=== PATIENT | female | born 1965 | race Caucasian/White ===

== ENCOUNTER 2024-02-22 15:03 | Observation (INO) | payer OTHER, SELFPAY ==
--- NOTE | 2024-02-22 | ECG_ITS ---
Test Reason : chest pain Blood Pressure : / mmHG Vent. Rate : 134 BPM Atrial Rate : 000 BPM P-R Int : 000 ms QRS Dur : 086 ms QT Int : 346 ms P-R-T Axes : 000 -37 -48 degrees QTc Int : 516 ms Atrial fibrillation with rapid ventricular response ; initial part of EKG is sinus. Left axis deviation Minimal voltage criteria for LVH, may be normal variant ( R in aVL ) Inferior infarct , age undetermined -could be related to body habitus and lead placement Possible Anterior infarct , age undetermined - could be related to body habitus and lead placement Abnormal ECG No previous ECGs available Referred By: Generic ED Physician Electronically Signed By:NIURKA CARDENAS
--- NOTE | ~2024-02-22 | US_ITS ---
EXAMINATION: US TRIPLEX LOWER EXTREMITY, RIGHT CLINICAL INFORMATION: Pain, swelling COMPARISON: None available. TECHNIQUE: Color-flow triplex imaging with spectral analysis and compression Doppler were performed on the right lower extremity. FINDINGS: Respiratory variation, normal compression and augmented flow are noted throughout the right lower extremity. The visualized common femoral vein, superficial femoral vein, profunda femoral vein, popliteal vein and midcalf peroneal and posterior tibial venous segments show no evidence of deep venous thrombosis. There is no Art's cyst. US/US venous duplex LE RT IMPRESSION: No evidence of deep venous thrombosis involving the right lower extremity. Electronically signed by: Lamar Damon MD 02/22/2024 06:13 PM EDT RP
--- NOTE | ~2024-02-22 | XR_ITS ---
EXAMINATION: XR CHEST CLINICAL INFORMATION: Rapid atrial fibrillation COMPARISON: None available. TECHNIQUE: Frontal view of the chest was obtained. FINDINGS: No significant abnormality is noted involving the heart, lungs, mediastinum, bony thorax or soft tissues. XR/XR chest 1V IMPRESSION: No acute processes. Electronically signed by: Chevy Mcdonough MD 02/22/2024 09:00 PM EDT RP
--- NOTE | 2024-02-22 15:26 | ED.GENADULT ---
HPI - General Adult General Chief complaint: Arrhythmia/Palpitations Stated complaint: Chest pain Time Seen by Provider: 02/22/24 16:00 Source: patient, RN notes reviewed and old records reviewed Mode of arrival: ambulatory Limitations: no limitations History of Present Illness ED Provider: Jacey ESCOBEDO narrative: 58-year-old female with past medical history significant for hyperlipidemia, status post left hip replacement presents for evaluation of palpitations. Patient reports that she has felt unwell for the last 5 days She reports feeling lightheaded, dizzy when standing pain She endorses associated nausea and shortness of breath She reports that her fit bit today told her heart rate was over 130 The patient had EKG in triage which showed atrial fibrillation at 134 beats minute. The patient denies any known history of atrial fibrillation She denies any chest pain, recent fevers, chills, cough pain Denies any recent travel She states that she takes hydrochlorothiazide for intermittent right lower leg swelling This is been unchanged for about 12 years Related Data Home Medications ?Medication ?Instructions ?Recorded ?Confirmed hydrochlorothiazide 25 mg tablet 25 mg PO DAILY 02/22/24 02/22/24 rosuvastatin 10 mg tablet 10 mg PO DAILY 02/22/24 02/22/24 Allergies Allergy/AdvReac Type Severity Reaction Status Date / Time Penicillins [PCN] Allergy Rash Verified 02/22/24 15:29 Review of Systems Constitutional: Constitutional: Denies body ache(s), Denies chills and Denies fever(s) Cardiovascular: Cardiovascular: Denies chest pain, Reports rapid heart rate, Reports palpitations and Reports dyspnea Respiratory: Respiratory: Denies cough and Reports dyspnea Gastrointestinal: Gastrointestinal: Denies abdominal pain, Denies nausea and Denies vomiting Musculoskeletal: Musculoskeletal: Denies back pain Integumentary/Breasts: Skin/Breast: Denies rash Psychiatric: Psychiatric: Reports anxiety Endocrine: Endocrine: Reports palpitations PMFSH Social History Social History Smoked in Last 30 Days: No Advance Directives: No Advance Directives Information Provided: No Do you have a plan to hurt others: No Plan Patient : No Physical Exam ED Vital Signs: Vital Signs - 24 hr 02/22/24 15:27 02/22/24 16:43 02/22/24 17:44 Temperature 97.9 F Pulse Rate 89 86 91 Respiratory Rate 20 16 Blood Pressure 156/84 H 126/77 123/70 Pulse Oximetry 98 99 Oxygen Delivery Method Room Air Room Air BMI result Body Mass Index 26.6 Const General: healthy appearing, comfortable, no acute distress, alert and awake Nutritional Appearance: well nourished Orientation/consciousness: patient oriented x3 HENMT Head: Yes normocephalic and Yes atraumatic Eyes Eyelids: Yes eyelids normal Conjunctivae: conjunctivae normal Sclerae: sclerae normal Corneas: corneas normal Pupils: Equal, round and reactive pupils present EOM: EOMs intact bilaterally Neck Neck: Yes full ROM Resp Effort & Inspection: normal respiratory effort, able to speak in complete sentences, no audible wheezes and not labored Auscultation: clear to auscultation bilaterally Cardio Rate: abnormal rate and tachycardic Rhythm: abnormal rhythm irregularly irregular GI Inspection: No distended Palpation (GI): Soft to palpation, not firm, nontender, no guarding and not rigid Skin General skin exam: elasticity normal Neuro General: patient oriented x3 Cranial nerves: Yes Equal, round and reactive pupils present and Yes Bilaterally intact EOM present Cognition (Neuro): normal cognition Extrem Other: Moving all extremities well without any obvious deformities Course Course Course Narrative: This is an RME: Additional HPI, ROS, PE not included below will be deferred to primary provider. RME assessment and note performed by: Kary Cortez PA-C This is a [id number]-female who presents to the ER with a complaint of palpitations x 5 days. Reports that over the last 5 days it has been worsening. Endorsing lightheaded and dizzy. She is currently on crestor 20mg QD and HCTZ 50mg three times per week. Recently stopped taking aswaganda today, has been on it for 2 months or so. No hx of a fib. Medications Administered Discontinued Medications Generic Name Dose Route Start Last Admin Trade Name Freq PRN Reason Stop Dose Admin Aspirin 162 mg 02/22/24 19:59 02/22/24 20:45 Aspirin Enteric Coated 81 Mg Tablet.Dr PO 02/22/24 20:00 162 mg ONCE STA Administration Diltiazem HCl 120 mg 02/22/24 16:19 02/22/24 16:43 Diltiazem Hcl Cd 120 Mg Cap.Er.Deg PO 02/22/24 16:20 120 mg ONCE ONE Administration Protocol Medical Decision Making Medical Decision Making MDM Narrative: 58-year-old female presents for evaluation of palpitations, she was found to be in AFib at 1:34 a.m. and EKG. Blood time I evaluated her in the room her heart rate was in the 80s to 90s. I did order a dose of Cardizem to keep her rate controlled. Blood pressure is stable. Plan for labs, ultrasound of the right lower extremity given the intermittent right leg swelling. Given that this is new onset AFib, the patient will likely require admission for further evaluation and management. She has no chest pain, her EKG is nonischemic. The patient does report a history of hypokalemia likely due to hydrochlorothiazide use this will be assessed on basic labs and repleted if necessary. Differential Diagnosis Differential Diagnoses: The differential diagnosis associated with the presentation includes Atrial fibrillation Atrial flutter DVT PE Cardiomyopathy Cardiac arrhythmia Admission/Observation Consideration of admission/observation: Escalation of care including admission/observation considered The patient will likely require admission for new onset AFib Lab Data [facility] Lab Attestation statement: I reviewed the patient's lab results. No leukocytosis or anemia. Normal platelet count. No electrolyte abnormalities. 02/22/24 15:57 02/22/24 15:57 Labs: Lab Results 02/22/24 Range/Units 15:57 WBC 6.5 (4.8-10.8) X10*3/uL RBC 4.93 (4.20-5.50) X10*6/uL Hgb 14.1 (12.0-16.0) g/dl Hct 42.0 (37.0-47.0) % MCV 85.2 (80.0-98.0) fL MCH 28.6 (27.0-33.0) pg MCHC 33.6 (31.0-35.0) g/dl RDW 13.2 (11.0-16.0) % Plt Count 202 (160-400) X10*3/uL MPV 12.6 H (9.4-12.3) fL Immature Gran % (Auto) 0.3 (0.0-0.4) % Neut % (Auto) 62.3 (45-73) % Lymph % (Auto) 28.7 (20-40) % [place] % (Auto) 5.6 (2-11) % Eos % (Auto) 2.5 (0-4) % Baso % (Auto) 0.6 (0-2) % Lymph # (Auto) 1.9 (1.2-4.9) X10*3/uL [place] # (Auto) 0.4 (0.1-1.2) X10*3/uL Eos # (Auto) 0.2 (0.0-0.4) X10*3/uL Baso # (Auto) 0.0 (0.0-0.2) X10*3/uL Abs Immat Gran (auto) 0.02 (0.00-0.03) X10*3/uL Absolute Neuts (auto) 4.0 (2.0-8.3) x10*3/uL Absolute Nucleated RBC 0.000 (0.0-0.012) X10*3/uL Nucleated RBC % (auto) 0.0 (0.0-0.2) /100WBC PT 11.3 (10.9-12.4) SEC INR 1.0 (0.9-1.1) APTT 35.6 (26.0-36.8) SEC Sodium 142 (135-145) mmol/L Potassium 3.5 (3.3-5.1) mmol/L Chloride 104 (96-108) mmol/L Carbon Dioxide 28 (22-29) mmol/L Anion Gap 14 (12-20) BUN 8 L (9-16) mg/dL Creatinine 0.69 (0.5-1.4) mg/dL Estim Creat Clear Calc 93.0 Estimated GFR > 60 Random Glucose 88 (60-115) mg/dL Calcium 10.4 H (8.4-10.2) mg/dL Magnesium 2.4 (1.6-2.6) mg/dL Total Bilirubin 1.5 H (0.0-1.0) mg/dL Direct Bilirubin 0.3 (0.0-0.5) mg/dL AST 17 (5-31) U/L ALT 19 (0-31) U/L Alkaline Phosphatase 76 (39-117) U/L Troponin I High Sens < 2.7 (<3.5-17.0) ng/L B-Natriuretic Peptide < 10 (<100) pg/mL Total Protein 8.1 H (6.5-8.0) g/dL Albumin 4.9 (3.5-5.0) g/dL TSH 1.91 (0.32-4.0) uIU/mL Influenza Type A (PCR) NEGATIVE (Negative) Influenza Type B (PCR) NEGATIVE (Negative) RSV RNA Qual (PCR) NEGATIVE (Negative) SARS-CoV-2 RNA (RT-PCR) NEGATIVE (Negative) Independent Interpretation I performed an independent interpretation of an: EKG (AFib with rapid ventricular response, rate of [address] segment elevation [place]. Troponin negative) Discharge Plan Discharge Clinical Impression: Palpitations, Atrial fibrillation Patient Disposition: Admitted As Inpatient Interventions: Admission Worksheet (ED) Last Done: 02/22/24 20:35
[2024-02-22 15:27] VITALS: BP 156/84; PULSE 89; RESP 20; TEMP 36.6; O2SAT 98; BMI 26.6
[2024-02-22 16:03] LABS: MANUAL DIFF FLAG NO
[2024-02-22 16:06] LABS: Basophils Percent Auto 0.6 % (0-2); Eosinophils Absolute Auto 0.2 X10*3/uL (0.0-0.4); Eosinophils Percent Auto 2.5 % (0-4); Hemoglobin 14.1 g/dl (12.0-16.0); Imm Gran Abs Auto 0.02 X10*3/uL (0.00-0.03); Imm Gran Pct Auto 0.3 % (0.0-0.4); Lymphocytes Absolute Auto 1.9 X10*3/uL (1.2-4.9); Lymphocytes Percent Auto 28.7 % (20-40); Mean Corpuscular HGB Conc 33.6 g/dl (31.0-35.0); Mean Corpuscular Hemoglobin 28.6 pg (27.0-33.0); Mean Corpuscular Volume 85.2 fL (80.0-98.0); Mean Platelet Volume 12.6 fL (9.4-12.3); Monocytes Absolute Auto 0.4 X10*3/uL (0.1-1.2); Monocytes Percent Auto 5.6 % (2-11); Neutrophils Percent Auto 62.3 % (45-73); Platelet Count 202 X10*3/uL (160-400); Red Blood Count 4.93 X10*6/uL (4.20-5.50); Red Cell Distribution Width 13.2 % (11.0-16.0); White Blood Count 6.5 X10*3/uL (4.8-10.8)
[2024-02-22 16:11] LABS: Prothrombin Time 11.3 SEC (10.9-12.4)
[2024-02-22 16:13] LABS: Partial Thromboplastin Time 35.6 SEC (26.0-36.8)
[2024-02-22 16:19] VITALS: PULSE 85
[2024-02-22 16:24] LABS: Alanine Aminotransferase 19 U/L (0-31); Albumin Level 4.9 g/dL (3.5-5.0); Alkaline Phosphatase 76 U/L (39-117); Anion Gap 14 (12-20); Aspartate Amino Transferase 17 U/L (5-31); Bilirubin Direct 0.3 mg/dL (0.0-0.5); Bilirubin Total 1.5 mg/dL (0.0-1.0); Blood Urea Nitrogen 8 mg/dL (9-16); Calcium 10.4 mg/dL (8.4-10.2); Carbon Dioxide 28 mmol/L (22-29); Chloride 104 mmol/L (96-108); Estimated Glomerular Filt Rate > 60; Glucose Random 88 mg/dL (60-115); Magnesium 2.4 mg/dL (1.6-2.6); Potassium 3.5 mmol/L (3.3-5.1); Sodium 142 mmol/L (135-145); Total Protein 8.1 g/dL (6.5-8.0)
[2024-02-22 16:27] LABS: Troponin-I High Sensitivity < 2.7 ng/L (<3.5-17.0)
[2024-02-22 16:40] LABS: Influenza A PCR NEGATIVE (Negative); Influenza B PCR NEGATIVE (Negative); Resp Syncy Virus RNA Qual PCR NEGATIVE (Negative); SARS COV2 PCR INHOUSE NEGATIVE (Negative); TSH reflex Free T4 1.91 uIU/mL (0.32-4.0)
[2024-02-22 16:41] LABS: B Type Natriuretic Peptide < 10 pg/mL (<100)
[2024-02-22 16:43] VITALS: BP 126/77; PULSE 86
[2024-02-22] MEDS: dilTIAZem HCL CD 120 MG CAP.ER.DEG PO (16:43)
--- NOTE | 2024-02-22 16:57 | PC.NURSE ---
pt medicated per JUL- pt resting on exam room stretcher, changed into hospital attire, patient monitor applied, call chen within reach
[2024-02-22 17:44] VITALS: BP 123/70; PULSE 91; RESP 16; O2SAT 99
--- NOTE | 2024-02-22 17:50 | PC.NURSE ---
Pt reports heart palpitations x 5 days with associated lightheadedness. states today sx worse, found to be in A fib, no history with a rate in 80s. Also reports right ankle swelling, bedside ultrasound being done at this time
[2024-02-22 20:00] VITALS: BP 128/77; PULSE 102; RESP 22; TEMP 36.7; O2SAT 97
--- NOTE | 2024-02-22 20:04 | P.HPHOSP_ITS ---
History of Present Illness Date of Service: 02/22/24 Attending physician on admission: Yue Banks Chief Complaint: Palpitations Arlene Hale is a very pleasant 58 years old woman with past medical history significant for hyperlipidemia presents to the emergency department complaining of 5 days' history of palpitations associated with dizziness and shortness on breath. She denied chest pain or loss of consciousness. She did not report fever or chills. She does not have history of hyperthyroidism, essential hypertension, atrial fibrillation or CHF. Did not report any acute gastrointestinal or genitourinary symptoms. She does take hydrochlorothiazide every other day for ankle edema. Denied alcohol abuse, tobacco smoking or illicit drug use. She commented that about 5 years ago while she was having a colonoscopy she was experiencing PVCs for which she was evaluated. She was taking ashwanga for brain fog . In the ED, she was found to have atrial fibrillation with rapid ventricular response, which resolved after Cardizem p.o. was given. Other vital signs are normal. Blood workup including CBC, CMP, BNP, TSH and troponin are unremarkable. ECG is consistent with atrial fibrillation with rapid ventricular response. ED tx: Diltiazem 120 mg p.o. once Review of Systems 2 Review of Systems: All 12 systems were reviewed and normal except as noted in HPI. [facility] Medical History (Updated 02/22/24 @ 21:04 by Yue Banks MD) Hyperlipidemia Social History Smoked in Last 30 Days: No Advance Directives: No Advance Directives Information Provided: No Do you have a plan to hurt others: No Plan Patient : No Meds Allergies Allergy/AdvReac Type Severity Reaction Status Date / Time Penicillins [PCN] Allergy Rash Verified 02/22/24 15:29 Active Medications: Current Medications Acetaminophen (Acetaminophen 325 Mg Tablet) 650 mg PO Q6H PRN PRN Reason: Pain, Mild (Pain Scale 1-3), fever or headache Melatonin (Melatonin 3 Mg Tablet) 6 mg PO BEDTIME PRN PRN Reason: Insomnia Sodium Chloride (0.9 % Sodium Chloride Flush 3 Ml Syringe) [facility] Medications ?Medication ?Instructions ?Recorded ?Confirmed ?Last Taken ?Type hydrochlorothiazide 25 mg tablet 25 mg PO DAILY 02/22/24 02/22/24 Unknown History rosuvastatin 10 mg tablet 10 mg PO DAILY 02/22/24 02/22/24 Unknown History Physical Exam 2 Vital Signs and Narrative: Vital Signs: Last Vital Signs Temp 97.9 F 02/22/24 15:27 Pulse 91 02/22/24 17:44 Resp 16 02/22/24 17:44 BP 123/70 02/22/24 17:44 Pulse Ox 99 02/22/24 17:44 O2 Del Method Room Air 02/22/24 17:44 BMI result Body Mass Index 26.6 Constitutional - Awake and Alert, No apparent distress HEENT - Pupils equally round. Heart - Irregular rhythm, normal rate. No murmus. Lungs - Normal lung expansion, Normal respiratory effort, No respiratory distress, CTA bilaterally Abdomen - Nontender. Extremities - no calf tenderness bilaterally, no swelling Musculoskeletal - Normal inspection, normal ROM Skin - Warm/Dry Neurological - Alert & oriented x3. No focal weakness grossly noted. Psychological - Appropriate affect Results Labs 02/22/24 15:57 02/22/24 15:57 Labs: Laboratory Results - last 24 hr 02/22/24 15:57 MCV 85.2 MCH 28.6 MCHC 33.6 RDW 13.2 Plt Count 202 MPV 12.6 H Immature Gran % (Auto) 0.3 Neut % (Auto) 62.3 Lymph % (Auto) 28.7 [place] % (Auto) 5.6 Eos % (Auto) 2.5 Baso % (Auto) 0.6 Lymph # (Auto) 1.9 [place] # (Auto) 0.4 Eos # (Auto) 0.2 Baso # (Auto) 0.0 Abs Immat Gran (auto) 0.02 Absolute Neuts (auto) 4.0 Absolute Nucleated RBC 0.000 Nucleated RBC % (auto) 0.0 PT 11.3 INR 1.0 APTT 35.6 Anion Gap 14 Estim Creat Clear Calc 93.0 Estimated GFR > 60 Random Glucose 88 Calcium 10.4 H Magnesium 2.4 Total Bilirubin 1.5 H Direct Bilirubin 0.3 AST 17 ALT 19 Alkaline Phosphatase 76 Troponin I High Sens < 2.7 B-Natriuretic Peptide < 10 Total Protein 8.1 H Albumin 4.9 TSH 1.91 Influenza Type A (PCR) NEGATIVE Influenza Type B (PCR) NEGATIVE RSV RNA Qual (PCR) NEGATIVE SARS-CoV-2 RNA (RT-PCR) NEGATIVE Imaging Radiologist's Impressions: Impressions Venous Duplex 02/22/24 17:30 IMPRESSION: No evidence of deep venous thrombosis involving the right lower extremity. Electronically signed by: Lamar Damon MD 02/22/2024 06:13 PM EDT Assessment and Plan (1) Atrial fibrillation: Qualifiers: Atrial fibrillation type: unspecified Qualified Code(s): I48.91 - Unspecified atrial fibrillation Status: Acute (2) Hyperlipidemia: Qualifiers: Hyperlipidemia type: unspecified Qualified Code(s): E78.5 - Hyperlipidemia, unspecified Status: Acute Plan Arlene Hale is a 58 years old woman presents with: * Atrial fibrillation with rapid ventricular response, now rate controlled. Troponin neg. Normal TSH. Observation under hospitalist service. Telemetry. Continue Cardizem CD 120 mg p.o. daily (this seems to be working for her). Start treatment with aspirin daily. Check echo. Obtain cardiology consult. * Hyperlipidemia. Continue statin. * Hx of lower extremities edema, currently no edema. Hold HCTZ for now. Code status: Full DVT prophylaxis: Early ambulation. Quality Stroke Does the patient have a stroke diagnosis?: No VTE Prior VTE?: No VTE Risk Level:: Medical - low VTE Device Contraindication: Treatment Not Indicated VTE Drug Contraindication: Treatment Not Indicated
--- NOTE | 2024-02-22 20:18 | MHC.EDTECH ---
This tech assumed care of patient at 1900,rounded and introduced self to patient,patient ambulated to the bathroom with a steady gait,vitals taken,belongings list completed,copy placed in chart,call chen in reach
[2024-02-22] MEDS: Aspirin Enteric Coated 81 MG TABLET.DR 162 MG PO (20:45)
[2024-02-22 22:01] VITALS: BMI 30.1
[2024-02-22] MEDS: 0.9 % Sodium Chloride Flush 3 ML SYRINGE IVFLUSH (22:01)
[2024-02-22 22:08] VITALS: BP 126/79; PULSE 82; RESP 17; TEMP 36.3; O2SAT 97
[2024-02-23 03:31] VITALS: BP 108/56; PULSE 74; RESP 20; TEMP 36.2; O2SAT 98
[2024-02-23 06:58] LABS: MANUAL DIFF FLAG NO
--- NOTE | 2024-02-23 07:00 | CA_ITS ---
Transthoracic Echocardiogram Patient (Last, First, Middle): Arlene Hale, Gender: Female Date of : 1965 Age: 58 Procedure Date: 02/23/2024 Procedure Type: Transthoracic Echocardiogram Location: [facility] [place] Height: 167. cm Weight: 84.82 kg BSA: 1.94 m2 Heart Rate: bpm BP: 105 / 70 mmHg Test Bore Helper: Referring MD: Yue Banks MD Symptoms: Rapid AFib Study Quality: Fair/Contrast ECG Rhythm: Sinus Conclusions: - LVEF difficult to assess in spite of contrast use; possibly 50 55%. - No obvious valvular pathology seen on this study. Findings Procedure Information Contrast agent, definity, is being given per protocol without apparent complications. Left Ventricle Normal left ventricular cavity size. There is normal left ventricular wall thickness. There is no evidence of regional wall motion abnormalities. Diastolic function is normal for age. LVEF difficult to assess in spite of contrast use; possibly 50-55%. Right Ventricle Normal right ventricular cavity size and systolic function. Atria Both atria are normal in size. Aortic Valve The aortic valve was not well visualized. There is no aortic valve stenosis. There is no aortic valve regurgitation. Mitral Valve The mitral valve appears normal. There is no mitral valve regurgitation. There is no mitral valve stenosis. Pulmonic Valve The pulmonic valve is likely normal. Tricuspid Valve There is trace tricuspid valve regurgitation. There is no evidence of pulmonary hypertension. Great Vessels The asc aorta is normal in size. Venous The inferior vena cava is normal in size and collapses greater than 50% with inspiration. Pericardium/Pleural There is no evidence of pericardial effusion. Prior Study Comparison No prior study available for comparison. Recommendations, Care & Conclusions No obvious valvular pathology seen on this study. Measurements 2D Linear Measurements IVSd: 0.97 0.6-0.9/0.6-1.0 cm LVIDd: 4.07 3.9-5.3/4.2-5.9 cm LVIDd Index: 2.10 2.4-3.2/2.2-3.1 cm/m2 LVIDs: 2.65 2.0-3.6 cm LVPWd: 0.91 0.7-1.1 cm Ao Root: 3.30 2.1-3.5 cm LA Diam: 2.80 2.7-3.8/3.0-4.0 cm LAIDs Index: 1.44 1.5-2.3 cm/m2 LV Mass: 148.73 67-162/88-224 g LV Mass Index: 76.67 43-95/49-115 g/m2 LVOT Diam: 1.90 3.0+(-)1.3 cm Mitral Valve MV Pk E: 0.54 MV PK A: 0.72 MV Decel Time: 259.00 E/A: 0.80 E'Lateral: 12.30 E'Medial: 8.49 E/E' Med: 6.40 E/E' Lat: 4.40 PHT: 76.00 MVA PHT: 2.89 Decel Eddy: 2.10 Aortic Valve AoV Pk Rico: 1.00 AoV Mn Rico: 0.61 AoV VTI: 0.20 AoV Pk Grad: 4.00 Aov Mn Grad: 2.00 CRISTY Cont.VTI: 2.00 LVOT LVOT Pk Rico: 0.67 LVOT Mn Rico: 0.46 LVOT VTI: 0.14 LVOT Pk Grad: 2.00 LVOT Mn Grad: 1.00 LVOT Diam: 1.90 LVOT Area: 2.84 Diastolic Function MV Pk E: 0.54 MV Pk A: 0.72 E/A: 0.80 E'Medial: 8.49 E/E' Med: 6.40 E' Laterial: 12.30 E/E' Lat: 4.40 Right Ventricle TAPSE (mm): 20.30 TVS' Rico: 10.20 Tricuspid Valve TR Pk Rico: 1.96 TR Pk Grad: 15.00 Great Vessels Aorta Ao Root-2D: 3.30 2.0-3.7 cm Ao Asc: 2.80 2.1-3.4 cm Pulmonary Valve PV Pk Rico: 0.86 Peak PV Grad: 3.00 Updated in Other Vendor System with Status of Final Ernie Turner MD electronically signed on 02/23/2024 12:17:50 PM with status of Final
[2024-02-23 07:01] LABS: Basophils Percent Auto 0.7 % (0-2); Eosinophils Absolute Auto 0.2 X10*3/uL (0.0-0.4); Hematocrit 37.7 % (37.0-47.0); Hemoglobin 12.5 g/dl (12.0-16.0); Imm Gran Abs Auto 0.02 X10*3/uL (0.00-0.03); Imm Gran Pct Auto 0.4 % (0.0-0.4); Lymphocytes Absolute Auto 1.9 X10*3/uL (1.2-4.9); Lymphocytes Percent Auto 33.8 % (20-40); Mean Corpuscular HGB Conc 33.2 g/dl (31.0-35.0); Mean Corpuscular Hemoglobin 28.3 pg (27.0-33.0); Mean Corpuscular Volume 85.3 fL (80.0-98.0); Mean Platelet Volume 12.8 fL (9.4-12.3); Monocytes Absolute Auto 0.3 X10*3/uL (0.1-1.2); Monocytes Percent Auto 5.9 % (2-11); Neutrophils Absolute Auto 3.1 x10*3/uL (2.0-8.3); Neutrophils Percent Auto 56.2 % (45-73); Platelet Count 177 X10*3/uL (160-400); Red Blood Count 4.42 X10*6/uL (4.20-5.50); Red Cell Distribution Width 13.2 % (11.0-16.0); White Blood Count 5.6 X10*3/uL (4.8-10.8)
[2024-02-23 07:02] VITALS: BP 105/70; PULSE 77; RESP 18; TEMP 36.2; O2SAT 96
[2024-02-23 07:27] LABS: Anion Gap 12 (12-20); Blood Urea Nitrogen 9 mg/dL (9-16); Calcium 9.3 mg/dL (8.4-10.2); Carbon Dioxide 27 mmol/L (22-29); Chloride 107 mmol/L (96-108); Creatinine Clr Calc Pharmacy 101.6; Estimated Glomerular Filt Rate > 60; Glucose Random 88 mg/dL (60-115); Magnesium 2.3 mg/dL (1.6-2.6); Potassium 3.3 mmol/L (3.3-5.1); Sodium 143 mmol/L (135-145)
[2024-02-23 07:29] LABS: Troponin-I High Sensitivity < 2.7 ng/L (<3.5-17.0)
--- NOTE | 2024-02-23 08:16 | PHA.MEDREC ---
Pharmacy Consult ? Medication Reconciliation Pharmacy has completed the medication reconciliation. Spoke to pt at bedside, she stated she takes HCTZ 50mg three times weekly and Rosuvastatin 20mg Daily. Does not match fill history, will communicate this with provider.
[2024-02-23] MEDS: dilTIAZem HCL CD 120 MG CAP.ER.DEG PO (08:19)
[2024-02-23] MEDS: Aspirin 81 MG TAB.CHEW PO (08:19)
[2024-02-23] MEDS: 0.9 % Sodium Chloride Flush 3 ML SYRINGE IVFLUSH (08:20)
--- NOTE | 2024-02-23 08:53 | MHC.CM.PN ---
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 Her son will pick her up at [place]. HCP form completed here and added to chart. DCP: home, self care. CM to follow for DC needs.
--- NOTE | 2024-02-23 10:39 | P.CONCA_ITS ---
History of Present Illness History of Present Illness Date of Service: 02/23/24 Chief complaint: Rapid A-fib Narrative: This is a cardiology consultation regarding atrial fibrillation. Patient denies any prior cardiac history including coronary disease or myocardial infarction or cardiomyopathy or in fact any other cardiac issues. She states that she generally feels fine. For the last few days, she has been noticing palpitations with some dizziness and shortness of breath and that led to further evaluation. She was found to be in atrial fibrillation with rapid response and got Cardizem. After that, it seems that she has back to normal sinus rhythm. Currently, she states she is feeling better. Otherwise, there is history of possible arrhythmia, PVCs versus something else few years back but not very clear. Otherwise, she is fairly active with no limitations. Review of Systems 2 Review of Systems: Yes all other systems are reviewed and are negative Constitutional: Constitutional: Reports as per HPI and Reports no additional constitutional complaints Eyes: Eyes: Reports as per HPI and Denies no additional eye complaints ENT: Denies system reviewed and no additional complaints, except as documented and Reports as per HPI Cardiovascular: Cardiovascular: Reports as per HPI, Reports no additional cardiovascular complaints, Denies acrocyanosis, Denies cool extremities, Denies chest pain, Denies leg edema, Denies lightheadedness, Denies palpitations and Denies dyspnea Respiratory: Respiratory: Reports as per HPI, Denies no additional respiratory complaints and Denies dyspnea Gastrointestinal: Gastrointestinal: Reports as per HPI and Denies no additional gastrointestinal complaints Genitourinary: Genitourinary: Reports as per HPI Musculoskeletal: Musculoskeletal: Reports no additional musculoskeletal complaints and Reports as per HPI Integumentary/Breasts: Skin/Breast: Reports system reviewed and no additional complaints, except as docu Neurologic: Reports system reviewed and no additional complaints, except as documented and Reports as per HPI Psychiatric: Psychiatric: Reports no additional psychiatric complaints and Reports as per HPI Endocrine: Endocrine: Reports no additional endocrine complaints, Reports as per HPI and Denies palpitations Hematologic/Lymphatic: Hematologic/Lymphatic: Reports no additional hematologic/lymphatic complaints and Reports as per HPI Allergic/Immunologic: Allergic/Immunologic: Reports no additional allergic/immunologic complaints and Reports as per HPI PMFSH Past Medical History Medical History (Updated 02/23/24 @ 10:43 by Ernie Turner MD) Hyperlipidemia Family History Family History (Updated 02/23/24 @ 10:42 by Ernie Turner MD) Father Atrial fibrillation Social History Social History Household Members: Children Housing: House Do you presently have visiting nurse or other home services: No Patient Tobacco Use Status: Former Tobacco user service: No Meds Allergies Allergy/AdvReac Type Severity Reaction Status Date / Time Penicillins [PCN] Allergy Rash Verified 02/22/24 15:29 Active Medications: Current Medications Acetaminophen (Acetaminophen 325 Mg Tablet) 650 mg PO Q6H PRN PRN Reason: Pain, Mild (Pain Scale 1-3), fever or headache Aspirin (Aspirin 81 Mg Tab.Chew) 81 mg PO DAILY [facility] Last Admin: 02/23/24 08:19 Dose: 81 mg Diltiazem HCl (Diltiazem Hcl Cd 120 Mg Cap.Er.Deg) 120 mg PO DAILY [facility]; Protocol Last Admin: 02/23/24 08:19 Dose: 120 mg Melatonin (Melatonin 3 Mg Tablet) 6 mg PO BEDTIME PRN PRN Reason: Insomnia Sodium Chloride (0.9 % Sodium Chloride Flush 3 Ml Syringe) 3 ml IVFLUSH QSHIFT [facility] Last Admin: 02/23/24 08:20 Dose: 3 ml Home Medications ?Medication ?Instructions ?Recorded ?Confirmed ?Last Taken ?Type hydrochlorothiazide 25 mg tablet 50 mg PO 3XW 02/22/24 02/23/24 02/22/24 09:00 History rosuvastatin 10 mg tablet 20 mg PO DAILY 02/22/24 02/23/24 02/22/24 09:00 History Physical Exam 2 Vital Signs: Vital Signs: Last Vital Signs Temp 97.1 F 02/23/24 07:02 Pulse 77 02/23/24 07:02 Resp 18 02/23/24 07:02 BP 105/70 02/23/24 07:02 Pulse Ox 96 02/23/24 07:02 O2 Del Method Room Air 02/23/24 07:02 BMI result Body Mass Index 30.1 Const: General: comfortable and no acute distress O rientation/consciousness: patient oriented x3 HEENT: Other: Unremarkable Head: Yes normal to inspection Neck: Neck: Yes normal visual inspection Chest: Chest palpation & inspection: normal inspection of the chest Resp: Auscultation: clear to auscultation bilaterally Cardio: Palpation: normal PMI Heart sounds: S1 normal heart sound present, S2 normal heart sound present, no gallops, no murmurs and no rubs GI: Palpation (GI): Soft to palpation Back/Spine/Pelvis: Other: unremarkable Skin: General skin exam: no rashes or lesions noted Neuro: General: patient oriented x3 Extrem: General: Yes normal to inspection Psych: Mental Status: mental status grossly normal Objective Labs and Meds 02/23/24 06:30 02/23/24 06:30 Lab results: Laboratory Results - last 24 hr 02/22/24 02/23/24 15:57 06:30 WBC 6.5 5.6 RBC 4.93 4.42 Hgb 14.1 12.5 Hct 42.0 37.7 MCV 85.2 85.3 MCH 28.6 28.3 MCHC 33.6 33.2 RDW 13.2 13.2 Plt Count 202 177 MPV 12.6 H 12.8 H Immature Gran % (Auto) 0.3 0.4 Neut % (Auto) 62.3 56.2 Lymph % (Auto) 28.7 33.8 [place] % (Auto) 5.6 5.9 Eos % (Auto) 2.5 3.0 Baso % (Auto) 0.6 0.7 Lymph # (Auto) 1.9 1.9 [place] # (Auto) 0.4 0.3 Eos # (Auto) 0.2 0.2 Baso # (Auto) 0.0 0.0 Abs Immat Gran (auto) 0.02 0.02 Absolute Neuts (auto) 4.0 3.1 Absolute Nucleated RBC 0.000 0.000 Nucleated RBC % (auto) 0.0 0.0 PT 11.3 INR 1.0 APTT 35.6 Sodium 142 143 Potassium 3.5 3.3 Chloride 104 107 Carbon Dioxide 28 27 Anion Gap 14 12 BUN 8 L 9 Creatinine 0.69 0.67 Estim Creat Clear Calc 93.0 101.6 Estimated GFR > 60 > 60 Random Glucose 88 88 Calcium 10.4 H 9.3 D Magnesium 2.4 2.3 Total Bilirubin 1.5 H Direct Bilirubin 0.3 AST 17 ALT 19 Alkaline Phosphatase 76 Troponin I High Sens < 2.7 < 2.7 B-Natriuretic Peptide < 10 Total Protein 8.1 H Albumin 4.9 TSH 1.91 Influenza Type A (PCR) NEGATIVE Influenza Type B (PCR) NEGATIVE RSV RNA Qual (PCR) NEGATIVE SARS-CoV-2 RNA (RT-PCR) NEGATIVE ECG Interpretation: In the EKG, the 1st few beats or sinus rhythm but after that, suggestive of atrial fibrillation rapid response. Minimal criteria for LVH; can not exclude old inferior infarct. Can not exclude old anterior infarct. Could be all from body habitus. Imaging Radiologist's impression: Impressions Venous Duplex 02/22/24 17:30 IMPRESSION: No evidence of deep venous thrombosis involving the right lower extremity. Electronically signed by: Lamar Damon MD 02/22/2024 06:13 PM EDT RP Chest X-Ray 02/22/24 19:55 IMPRESSION: No acute processes. Electronically signed by: Chevy Mcdonough MD 02/22/2024 09:00 PM EDT RP Assessment and Plan (1) Atrial fibrillation with rapid ventricular response: Status: Acute Plan Currently back to normal sinus rhythm. She is currently on diltiazem and maintain sinus rhythm. Low thromboembolic risk and hence does not need anticoagulation at this time. We discussed about this today. We will check echocardiogram for cardiac function. Otherwise, outpatient Holter, possible sleep study and we will look into coronary evaluation with possible CTA as well. Follow-up will be arranged. Procedures Date of Service Date of Service: 02/23/24
[2024-02-23 11:17] VITALS: BP 109/69; PULSE 73; RESP 18; TEMP 36.2; O2SAT 95
--- NOTE | 2024-02-23 13:52 | P.DS_ITS ---
DS: Providers Provider Date of Service: 02/23/24 Date of admission: 02/22/24 20:00 Date of discharge: 02/23/24 Primary care physician: Jing Valdes CNP Consults: 02/22/24 21:00 Consult to Cardiology Routine Consulting Provider: [facility] – [place] [facility] Reason for consultation: Rapid AFib, new onset Has provider been notified: Yes Attending physician on discharge: Lakisha Cramer Discharging clinician: Lakisha Cramer DS: Diagnosis Discharge Diagnosis (1) Atrial fibrillation with rapid ventricular response: Status: Acute DS: Summary Hospital Course Hospital Course: HPI:58 years old woman with past medical history significant for hyperlipidemia presents to the emergency department complaining of 5 days' history of palpitations associated with dizziness and shortness on breath. She denied chest pain or loss of consciousness. She did not report fever or chills. She does not have history of hyperthyroidism, essential hypertension, atrial fibrillation or CHF. Did not report any acute gastrointestinal or genitourinary symptoms. She does take hydrochlorothiazide every other day for ankle edema. Denied alcohol abuse, tobacco smoking or illicit drug use. She commented that about 5 years ago while she was having a colonoscopy she was experiencing PVCs for which she was evaluated. She was taking ashwanga for brain fog . In the ED, she was found to have atrial fibrillation with rapid ventricular response, which resolved after Cardizem p.o. was given. Other vital signs are normal. Blood workup including CBC, CMP, BNP, TSH and troponin are unremarkable. ECG is consistent with atrial fibrillation with rapid ventricular response. ED tx: Diltiazem 120 mg p.o. once. Hospital course:patient came to hospital afib -tsh levels normal ,cardizem cd 120 mg daily, continue asa 81 mg daily. echo:LVEF difficult to assess in spite of contrast use; possibly 50 -55%. No obvious valvular pathology seen on this study. follow up with cardiology outpatient. plan: continue cardizem cd 120 mg daily, continue asa 81 mg daily. follow up with cardiology outpatient. Above management discussed with the patient detail length, she understand and in agreement with the above plan, time spent 40 min. Time Attestation Total time managing care of this patient today: 40 mintues. Discharge Coordination Time (in mins): 40min Quality: Safe Use of Opioids Does Pt have an Active Cancer Diagnosis on the Problem List?: No Quality: Stroke Does the patient have a stroke diagnosis?: No Physical Exam Vital Signs: Vital Signs: Last Vital Signs Temp 97.1 F 02/23/24 11:17 Pulse 73 02/23/24 11:17 Resp 18 02/23/24 11:17 BP 109/69 02/23/24 11:17 Pulse Ox 95 02/23/24 11:17 O2 Del Method Room Air 02/23/24 11:17 BMI result Body Mass Index 30.1 Appearance: Alert.? Oriented X3.? cvs: irregular rythem, [id number] . res: clear to auscultation ,no rhonchii or wheezing abd: no rebound or guarding ,nt, bs present. ext pulses present , no cyanosis . neuro: axo3 , nonfocal. DS: Data Data Completed and Pending Labs on day of discharge: Laboratory Results - last 24 hr 02/22/24 02/23/24 15:57 06:30 WBC 6.5 5.6 RBC 4.93 4.42 Hgb 14.1 12.5 Hct 42.0 37.7 MCV 85.2 85.3 MCH 28.6 28.3 MCHC 33.6 33.2 RDW 13.2 13.2 Plt Count 202 177 MPV 12.6 H 12.8 H Immature Gran % (Auto) 0.3 0.4 Neut % (Auto) 62.3 56.2 Lymph % (Auto) 28.7 33.8 [place] % (Auto) 5.6 5.9 Eos % (Auto) 2.5 3.0 Baso % (Auto) 0.6 0.7 Lymph # (Auto) 1.9 1.9 [place] # (Auto) 0.4 0.3 Eos # (Auto) 0.2 0.2 Baso # (Auto) 0.0 0.0 Abs Immat Gran (auto) 0.02 0.02 Absolute Neuts (auto) 4.0 3.1 Absolute Nucleated RBC 0.000 0.000 Nucleated RBC % (auto) 0.0 0.0 PT 11.3 INR 1.0 APTT 35.6 Sodium 142 143 Potassium 3.5 3.3 Chloride 104 107 Carbon Dioxide 28 27 Anion Gap 14 12 BUN 8 L 9 Creatinine 0.69 0.67 Estim Creat Clear Calc 93.0 101.6 Estimated GFR > 60 > 60 Random Glucose 88 88 Calcium 10.4 H 9.3 D Magnesium 2.4 2.3 Total Bilirubin 1.5 H Direct Bilirubin 0.3 AST 17 ALT 19 Alkaline Phosphatase 76 Troponin I High Sens < 2.7 < 2.7 B-Natriuretic Peptide < 10 Total Protein 8.1 H Albumin 4.9 TSH 1.91 Influenza Type A (PCR) NEGATIVE Influenza Type B (PCR) NEGATIVE RSV RNA Qual (PCR) NEGATIVE SARS-CoV-2 RNA (RT-PCR) NEGATIVE Imaging Chest x-ray: Radiologist's impression: ITS Impressions Venous Duplex 02/22/24 17:30 IMPRESSION: No evidence of deep venous thrombosis involving the right lower extremity. Electronically signed by: Lamar Damon MD 02/22/2024 06:13 PM EDT RP Chest X-Ray 02/22/24 19:55 IMPRESSION: No acute processes. Electronically signed by: Chevy Mcdonough MD 02/22/2024 09:00 PM EDT RP Discharge Plan Discharge Anticipated Discharge Date/Time: 02/23/24 13:00 Patient Disposition: Home, Self-Care Discharge Diagnosis: afib Referrals: Jing Valdes CNP [Primary Care Provider] - 1 Week Discharge Medications: New aspirin 81 mg Tablet,Chewable 81 mg PO DAILY Qty: 90 0RF diltiazem HCl [Cardizem CD] 120 mg Capsule,Extended Release 24hr 120 mg PO DAILY Qty: 90 0RF Protocol: Hold for SBP/HR < HOLD for SBP < : 90 HOLD for HR < : 60 Continued hydrochlorothiazide 25 mg tablet 50 mg PO 3XW rosuvastatin 10 mg tablet 20 mg PO DAILY Discharge Orders: Discharge Order (Routine); Ordered 02/23/24 Ordered By: Lakisha Cramer Diet: Advance to usual diet Activity on Discharge: As tolerated Stand Alone Forms: Patient Portal Discharge page Print Language: Malagasy Care Plan Goals: patient came to hospital afib -tsh levels normal ,cardizem cd 120 mg daily, continue asa 81 mg daily. echo:LVEF difficult to assess in spite of contrast use; possibly 50 -55%. No obvious valvular pathology seen on this study. follow up with cardiology outpatient. Health Concerns: cardizem cd 120 mg daily, continue asa 81 mg daily follow up with cardiology outpatient. Plan of Treatment: as above. Assessment: as above.
--- NOTE | 2024-02-23 14:11 | MHC.CM.PN ---
Pt has been medically cleared for DC, she will go home via family transport, plan is self care.
== END 2024-02-23 14:40 | disposition home or self-care (01) ==
LOC: HO.ED 19:24 → HO.EDOVER 20:07 → HO.IMC 20:14
PROVIDERS: Physician Assistant; Physician Assistant Medical; Admitting Provider Internal Medicine; Emergency Provider Student in an Organized Health Care Education/Training Program; PCP Nurse Practitioner Primary Care; Visit Provider Internal Medicine
DX: R07.9 Chest pain, unspecified (principal); I48.20 Chronic atrial fibrillation, unspecified; R06.02 Shortness of breath; R42 Dizziness and giddiness; M79.604 Pain in right leg; M79.89 Other specified soft tissue disorders; E78.5 Hyperlipidemia, unspecified; Z79.899 Other long term (current) drug therapy; Z03.818 Encounter for observation for suspected exposure to other biological agents ruled out
CPT/HCPCS: 0241U; 36415; 71045; 80048; 80076; 83735; 83880; 84443; 84484; 85025; 85610; 85730; 93005; 93306; 93971; 99222; 99285; Q9957

== ENCOUNTER 2024-02-22 20:00 | Outpatient (BNV) | payer OTHER, SELFPAY | END 2024-02-23 07:00 | PROVIDERS: Admitting Provider Internal Medicine; Emergency Provider Student in an Organized Health Care Education/Training Program; PCP Nurse Practitioner Primary Care; Visit Provider Internal Medicine | DX: I48.91 Unspecified atrial fibrillation (principal) | CPT/HCPCS: 93306 ==

== ENCOUNTER → 2024-02-22 20:00 | Outpatient (BNV) | payer OTHER, SELFPAY | PROVIDERS: Admitting Provider Internal Medicine; Emergency Provider Student in an Organized Health Care Education/Training Program; PCP Nurse Practitioner Primary Care; Visit Provider Internal Medicine | DX: I48.91 Unspecified atrial fibrillation (principal) | CPT/HCPCS: 93010; 99223 ==

== ENCOUNTER → 2024-02-22 20:00 | Outpatient (BNV) | payer OTHER, SELFPAY | PROVIDERS: Admitting Provider Internal Medicine; Emergency Provider Student in an Organized Health Care Education/Training Program; PCP Nurse Practitioner Primary Care; Visit Provider Internal Medicine | DX: I48.91 Unspecified atrial fibrillation (principal) | CPT/HCPCS: 99223; 99239 ==

== ENCOUNTER → 2024-02-26 09:05 | Outpatient (REF) | payer OTHER, SELFPAY ==
--- NOTE | 2024-02-26 09:08 | HM_ITS ---
* Total monitoring time 7 days. * Underlying rhythm is sinus with an average rate of 89/Min. * Frequent supraventricular ectopy with a burden of 5%. * Rare ventricular ectopy. * During sleep hours, very brief episodes of possible atrial flutter/atrial tachycardia versus artifact but with well controlled rates. Overall, minimal burden of 0.05%. * No significant pauses or high-grade AV blocks. * Patient markers diary events of palpitations, dizziness, pain, pinch associated with sinus rhythm and supraventricular ectopy. MTDD
== END ==
LOC: HO.CARD 09:05
PROVIDERS: PCP Nurse Practitioner Primary Care; Visit Provider Internal Medicine
DX: I48.91 Unspecified atrial fibrillation (principal)
CPT/HCPCS: 93242

== ENCOUNTER → 2024-02-26 09:08 | Outpatient (BNV) | payer OTHER, SELFPAY | PROVIDERS: PCP Nurse Practitioner Primary Care; Visit Provider Internal Medicine | DX: I47.10 Supraventricular tachycardia, unspecified (principal); I48.92 Unspecified atrial flutter | CPT/HCPCS: 93244 ==

== ENCOUNTER 2024-04-04 15:19 | Outpatient (AMB) | payer OTHER, SELFPAY ==
[2024-04-04 15:23] VITALS: BP 96/74; PULSE 90
--- NOTE | 2024-04-04 15:23 | MHC.OFFVIS ---
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 Recently seen in hospital for consultation regarding atrial fibrillation. She was noticing palpitations with some dizziness and shortness of breath and that led to further evaluation. She was found to be in atrial fibrillation with rapid ventricular response and got Cardizem. Then went back to normal sinus rhythm. She has a history of possible PACs versus PVCs in the past but nothing otherwise clearly cardiac. While on diltiazem, she is somewhat better but she states she gets dizzy off and on. Not clear if it is from low blood pressure type issues. Palpitations are still present but not as much. Some sensations of throat fluttering which could be from PACs. [facility] Medical History (Updated 04/04/24 @ 16:00 by Ernie Turner MD) Hyperlipidemia Family History (Updated 04/04/24 @ 15:26 by Ernestina Lopez CMA) Father Atrial fibrillation Mother HTN (hypertension) Sister Skin cancer Social History (Updated 04/04/24 @ 15:26 by Ernestina Lopez CMA) Household Members: Children Housing: House Do you presently have visiting nurse or other home services: No Alcohol intake: current Alcohol intake frequency: holidays/special occasions only Patient Tobacco Use Status: Former Tobacco user service: No Review of Systems Const Denies chills, Denies fatigue, Denies fever(s), Denies weight gain and Denies weight loss ENT Denies dizziness Card Denies chest pain, Denies leg edema, Denies lightheadedness, Denies palpitations, Denies dyspnea on exertion, Denies orthopnea and Denies other Resp Denies cough and Denies dyspnea on exertion GI Denies hematochezia and Denies change in stool character Musc Denies abnormal gait, Denies muscle weakness, Denies numbness, Denies radiating pain into limb and Denies tingling Neuro Denies abnormal gait, Denies dizziness, Denies numbness and Denies tingling Endo Denies fatigue and Denies palpitations Physical Exam Vital Signs: Last Vital Signs Pulse 90 04/04/24 15:23 BP 96/74 04/04/24 15:23 BMI result Body Mass Index 30.0 Const General: comfortable and no acute distress Orientation/consciousness: patient oriented x3 HEENT Other: Unremarkable Head: Yes normal to inspection Neck Neck: Yes normal visual inspection Chest Chest palpation & inspection: normal inspection of the chest Resp Auscultation: clear to auscultation bilaterally Cardio Palpation: normal PMI Heart sounds: S1 normal heart sound present, S2 normal heart sound present, no gallops, no murmurs and no rubs GI Palpation (GI): Soft to palpation Back/Spine/Pelvis Other: unremarkable Skin General skin exam: no rashes or lesions noted Neuro General: patient oriented x3 Extrem General: Yes normal to inspection Psych Mental Status: mental status grossly normal Assessment & Plan Assessment & Plan (1) Atrial fibrillation: Code(s): I48.91 - Unspecified atrial fibrillation Category: Medical Qualifiers: Atrial fibrillation type: unspecified Qualified Code(s): I48.91 - Unspecified atrial fibrillation (2) Premature atrial contractions: Code(s): I49.1 - Atrial premature depolarization Category: Medical Plan In the admission EKG, suspected atrial fibrillation rapid ventricular response. Could not exclude a prior inferior infarct or anterior infarct but more likely from body habitus. In the Holter monitor, underlying rhythm is sinus with frequent supraventricular ectopy. Possible transient atrial flutter/tachycardia at nighttime but not clear if it is rather an artifact. In the echocardiogram, LVEF 50-55%. Otherwise unremarkable. Overall, she is feeling some dizziness type symptoms with diltiazem, we can try a different agent like atenolol. Based on the blood pressure, we can try to adjust the dosing. If not, may need to use another agent like flecainide. We will also like to look for any associated coronary disease especially forgot to use flecainide. Hence obtain coronary CTA. Home sleep study. Low thromboembolic risk and hold off on anticoagulation. Follow-up after testing. Orders: Orders RT home sleep study Today Ernie Turner MD I48.91 - Unspecified atrial fibrillation CT Cardiac Coronary Angio Today Ernie Turner MD Basic Metabolic Panel Today Ernie Turner MD I48.91 - Unspecified atrial fibrillation Medications: New atenolol 25 mg PO DAILY 90 tabs 3RF Ernie Turner MD Discontinued aspirin Discontinued Reason: Patient no longer taking 81 mg PO DAILY 90 tabs 0RF Ernestina Lopez CMA diltiazem HCl CD (Cardizem CD) Discontinued Reason: Doctor's Order 120 mg See Protocol PO DAILY 90 caps 0RF Ernie Turner MD Coding Level of Care Code Est Pt Level 4 (16723) Diagnoses Atrial fibrillation, unspecified type I48.91 Atrial fibrillation type: unspecified Premature atrial contractions I49.1
== END 2024-04-04 16:21 | disposition home or self-care (01) ==
PROVIDERS: PCP Nurse Practitioner Primary Care; Visit Provider Internal Medicine
DX: I48.91 Unspecified atrial fibrillation (principal); I49.1 Atrial premature depolarization
CPT/HCPCS: 99214